=== PATIENT | male | born 1980 | race Caucasian/White ===

== ENCOUNTER 2016-07-23 21:02 | Emergency (ER) | payer MEDICAID ==
[~2016-07-23] VITALS: Ht 167.6 cm; Wt 68.5 kg
[2016-07-23 21:13] VITALS: Ht 167.6 cm; Wt 68.5 kg
--- NOTE | 2016-07-23 21:40 | ERA ---
ER Documentation Chief Complaint Date/Time DATE: 07/23/16 TIME: 21:39 Chief Complaint ALLERGIC REACTION, DIFFICULTY BREATHING, 02 SAT 98% HPI The patient is a 36-year-old male, presenting to the ER because of diffuse general body rash, itchy throat about 30 minutes prior to arrival while he was playing soccer. He has similar symptoms previously. He denies dysphonia, dysphagia, dysarthria. He denies using any new detergents, new soap, no new food, no new detergent/soap. He smokes and drinks socially. He denies abdominal pain, vomiting, diarrhea, dysuria Past medical/surgical history: None ROS All systems reviewed and are negative except as per history of present illness. Medications Home Meds No Active Prescriptions or Reported Meds Allergies Allergies: Coded Allergies: No Known Allergy (Unverified , 07/23/16) Physical Exam Vitals Vital Signs Date Time Temp Pulse Resp B/P Pulse Ox O2 Delivery O2 Flow Rate FiO2 07/23/16 21:13 98.0 106 28 164/103 98 Physical Exam Const: No acute distress. Head: Atraumatic. Eyes: Normal Conjunctiva. ENT: Normal External Ears, Nose and Mouth. Neck: Full range of motion. No meningismus. Resp: Clear to auscultation bilaterally. Cardio: Regular rate and rhythm, no murmurs. Abd: Soft, non distended, normal bowel sounds, non tender. Skin: Scattered maculopapular erythematous rash throughout her body, no vesicle, no petechia Back: No midline or flank tenderness. Ext: No cyanosis, or edema. Neur: Awake and alert. No focal deficit Psych: Normal Mood and Affect. Results 24 hrs Current Medications Medications (Trade) Dose Ordered Sig/Yonatan Route PRN Reason Start Time Stop Time Status Last Admin Dose Admin Sodium Chloride (NS) 1,000 ml @ 1,000 mls/hr Q1H ONCE IV 07/23/16 22:00 07/23/16 22:59 Diphenhydramine HCl (Benadryl) 50 mg ONCE ONCE IV 07/23/16 22:00 07/23/16 22:01 DC Methylprednisolone Sodium Succinate (Solu-Medrol) 125 mg ONCE ONCE IV 07/23/16 22:00 07/23/16 22:01 DC Famotidine (Pepcid Iv) 40 mg ONCE ONCE IV 07/23/16 22:00 07/23/16 22:01 DC Procedures/MDM MEDICAL MAKING DECISION: The patient is a 36-year-old male, presenting with acute urticaria. He was treated with 1 L normal saline, Benadryl 50 mg IV, Solu -Medrol 125 mg IV, Pepcid 40 mg IV with good response. The differential diagnoses considered include but are not limited to cellulitis, allergic/ contact dermatitis, food allergy Departure Diagnosis: Primary Impression: Urticaria Condition: Good Comments He was discharged with prednisone, Benadryl, Pepcid I discussed the findings with the patient. I advised the patient to follow-up with the primary physician in about 1-2 days, sooner if needed and return if any concern. The patient's blood pressure was elevated (>120/80) but appears stable without evidence of hypertension emergency or urgency. The patient was counseled about the risks of hypertension and urged to pursue outpatient monitoring and therapy within a week with their primary care physician. KIM SIMPSON MD Jul 23, 2016 21:39
[2016-07-23] MEDS ORDERED: SOD CHLORIDE 0.9% 1,000 ML IV ONE (22:00)
[2016-07-23] MEDS ORDERED: FAMOTIDINE 20 MG INJ IV ONE (22:00)
[2016-07-23] MEDS ORDERED: METHYLPREDNISOLONE 125 MG INJ IV ONE (22:00)
[2016-07-23] MEDS ORDERED: DIPHENHYDRAMINE 50 MG INJ IV ONE (22:00)
[2016-07-23] MEDS ORDERED: BEN50 PO (22:17)
[2016-07-23] MEDS ORDERED: PRED20TA PO (22:17)
[2016-07-23] MEDS ORDERED: FAMO20TA18 PO (22:18)
[2016-07-23 23:50] VITALS: BP 134/73; PULSE 77; RESP 18; TEMP 98
== END 2016-07-23 23:55 | disposition home or self-care (01) ==
LOC: E/R 21:02
DX: L50.9 Urticaria, unspecified (principal)
CPT/HCPCS: 96374; 96375; J1200; J2930; J7030; Z7502; Z7610

== ENCOUNTER 2016-08-23 19:35 | Emergency (ER) | payer MEDICAID ==
[~2016-08-23] VITALS: Ht 177.8 cm; Wt 68.5 kg
[~2016-08-23 19:35] MED LIST: BEN50 PO; FAMO20TA18 PO; PRED20TA PO
[2016-08-23 19:58] VITALS: Ht 177.8 cm; Wt 68.5 kg
[2016-08-23] MEDS ORDERED: CEPH-443 PO (21:32)
[2016-08-23] MEDS ORDERED: IBUP-1542 PO (21:32)
[2016-08-23] MEDS ORDERED: HYDR-3011 PO (21:32)
--- NOTE | 2016-08-23 21:37 | ERD ---
ER Documentation Chief Complaint Date/Time DATE: 08/23/16 TIME: 21:34 Chief Complaint INSECT BITE ON TUESDAY WITH SPREADING BUMPS HPI 36-year-old male presents to emergency department for complaints of rash all over the body and itching started 3 days ago. Patient is complaining of pain on affected area, burning pain, 4/10 scale, is worse upon touching the area. Patient works at a [employer], started to have itching after work. Patient denies any fever or chills. Patient denies any discharge coming from the rash. Patient did not take medications of symptoms. Patient denies any family members with the same type of rash. ROS All systems reviewed and are negative except as per history of present illness. Medications Home Meds Active Scripts Ibuprofen* (Motrin*) 600 Mg Tab, 600 MG PO Q6H Y for PAIN AND OR ELEVATED TEMP, #30 TAB Prov:DENNY JACOB NP 08/23/16 Hydroxyzine Hcl* (Hydroxyzine Hcl*) 25 Mg Tablet, 25 MG PO Q8H Y for ITCHING, # 30 TAB Prov:DENNY JACOB NP 08/23/16 Cephalexin* (Keflex*) 500 Mg Capsule, 500 MG PO QID for 10 Days, CAP Prov:DENNY JACOB NP 08/23/16 Famotidine* (Famotidine*) 20 Mg Tablet, 20 MG PO BID, #14 TAB Prov:KIM SIMPSON MD 07/23/16 Diphenhydramine Hcl* (Benadryl*) 50 Mg Cap, 50 MG PO Q6H Y for ITCHING/RASH, # 20 CAP Prov:KIM SIMPSON MD 07/23/16 Prednisone* (Prednisone*) 20 Mg Tab, 60 MG PO DAILY for 5 Days, TAB Prov:KIM SIMPSON MD 07/23/16 Allergies Allergies: Coded Allergies: No Known Allergy (Unverified , 07/23/16) PMhx/Soc Medical and Surgical Hx: pt denies Medical Hx, pt denies Surgical Hx Hx Alcohol Use: No Hx Substance Use: No Hx Tobacco Use: Yes Smoking Status: Current some day smoker FmHx Family History: No coronary disease, No diabetes, No other Physical Exam Vitals Vital Signs Date Time Temp Pulse Resp B/P Pulse Ox O2 Delivery O2 Flow Rate FiO2 08/23/16 19:58 98.6 64 18 127/56 99 Physical Exam GENERAL: The patient is well developed and appropriate for usual state of health, in no apparent distress. CHEST: Clear to auscultation bilaterally. There are no rales, wheezes or rhonchi. HEART: Regular rate and rhythm. No murmurs, clicks, rubs or gallops. No S3 or S4. ABDOMEN: Soft, nontender and nondistended. Good bowel sounds. No rebound or guarding. No gross peritonitis. No gross organomegaly or masses. No Uriostegui sign or McBurney point tenderness. BACK: No midline or flank tenderness. EXTREMITIES: Equal pulses bilaterally. There is no peripheral clubbing, cyanosis or edema. No focal swelling or erythema. Full range of motion. Grossly neurovascularly intact. NEURO: Alert and oriented. Cranial nerves 2-12 intact. Motor strength in all 4 extremities with 5/5 strength. Sensation grossly intact. Normal speech and gait. SKIN: Maculopapular rash noted all over the body with mild erythema and induration surrounding the area of rash. No fluctuance noted. No discharge coming from the rash. There is no apparent ecchymosis or petechia. The skin is warm and dry. HEMATOLOGIC AND LYMPHATIC: There is no evidence of excessive bruising or lymphedema. No gross cervical, axillary, or inguinal lymphadenopathy. Procedures/MDM Medical decision making: Patient symptoms is likely consistent with infected insect bite. No symptoms of any abscesses at this time. No fluctuance noted. No symptoms of any sepsis at this time. Patient appears well and is hemodynamically stable. Patient rash does not appear to be contagious. Patient was given prescription for hydroxyzine, ibuprofen, Keflex, is advised to follow- up with primary care doctor in 2-3 days for reevaluation of symptoms, patient was advised to avoid scratching the area, patient is advised to return to emergency department for any worsening symptoms. Departure Diagnosis: Primary Impression: Infected insect bites of multiple sites Condition: Stable Patient Instructions: Insect Sting/Bite, Infected DENNY JACOB NP Aug 23, 2016 21:37
[2016-08-23 21:59] VITALS: BP 113/65; PULSE 68; RESP 18; TEMP 98.6
== END 2016-08-23 21:59 | disposition home or self-care (01) ==
LOC: FTE 19:35
DX: S80.861A Insect bite (nonvenomous), right lower leg, initial encounter (principal); L08.89 Other specified local infections of the skin and subcutaneous tissue; F17.210 Nicotine dependence, cigarettes, uncomplicated; S80.862A Insect bite (nonvenomous), left lower leg, initial encounter; S40.869A Insect bite (nonvenomous) of unspecified upper arm, initial encounter; W57.XXXA Bitten or stung by nonvenomous insect and other nonvenomous arthropods, initial encounter; Y92.007 Garden or yard of unspecified non-institutional (private) residence as the place of occurrence of the external cause
CPT/HCPCS: 99284

== ENCOUNTER 2018-01-15 02:12 | Emergency (ER) | END 2018-01-15 05:30 | disposition home or self-care (01) ==